=== PATIENT | female | born 2005 | race Caucasian/White ===

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

== ENCOUNTER 2025-10-01 12:06 | Outpatient (REF) | payer BC, SELFPAY ==
[2025-10-02 12:10] LABS: Chlamydia Result Negative (Negative); GC Result Negative (Negative)
== END 2025-10-01 12:07 | disposition home or self-care (01) ==
LOC: LBN 12:06
PROVIDERS: Visit Provider Obstetrics & Gynecology
DX: Z70.8 Other sex counseling (principal)
CPT/HCPCS: 87491; 87591; 87480; 87510; 87660